=== PATIENT | male | born 1960 | race Caucasian/White ===

== ENCOUNTER 2021-03-25 11:05 | Emergency (ER) | payer BC ==
[2021-03-25] MEDS ORDERED: Boostrix 0.5 ML (Tdap) VIAL ONE ×3 (11:21→11:31)
[2021-03-25] MEDS ORDERED: Lidocaine 2% 20 ml MDV ONE (11:21)
== END 2021-03-25 12:04 | disposition home or self-care (01) ==
LOC: BURERS 11:05
DX: S81.812A Laceration without foreign body, left lower leg, initial encounter (principal); Z23 Encounter for immunization; E11.9 Type 2 diabetes mellitus without complications; E78.5 Hyperlipidemia, unspecified; E78.00 Pure hypercholesterolemia, unspecified; K21.9 Gastro-esophageal reflux disease without esophagitis; I10 Essential (primary) hypertension; F17.210 Nicotine dependence, cigarettes, uncomplicated; F17.220 Nicotine dependence, chewing tobacco, uncomplicated; W22.8XXA Striking against or struck by other objects, initial encounter
CPT/HCPCS: 12002; 90471; 90715